=== PATIENT | female | born 1990 | race Caucasian/White ===

== ENCOUNTER 2019-02-26 11:00 | Inpatient (IN) | payer MEDICAID ==
[~2019-02-26] VITALS: Ht 165.1 cm; Wt 63.0 kg
[2019-02-26] VITALS (21 sets, daily range): BP systolic 93–121; BP diastolic 42–70; PULSE 64–106; RESP 13–21
[~2019-02-26 11:00] MED LIST: IBUP800T48 PO; OXYC500S PO
[2019-02-26] MEDS ORDERED: SOD CHLORIDE 0.9% 1,000 ML IV STA (16:05)
--- NOTE | 2019-02-26 16:27 | ERD ---
ER Documentation Chief Complaint Chief Complaint rt flank,back pain for 2 wks, 6 wk , denies vaginal bleeding HPI 28-year-old female presents with right lower abdominal pain for the last 2 weeks. She is approximately 6 weeks by dates. She is a G4. 2. History significant for bilateral tubal ligation 7 years ago. She denies any vaginal bleeding, fevers, vomiting. Pain is described as 6 out of 10 nonradiating and dull. Denies urinary complaints. Patient receives care by Dr. Uriarte at [facility]. ROS All systems reviewed and are negative except as per history of present illness. Medications Home Meds Reported Medications Ibuprofen* (Motrin*) 800 Mg Tab, 800 MG PO 03/12/13 Oxycodone Hcl-Acetaminophen* (Oxycodone Hcl-Acetaminophen* Soln) 500 Ml Solution, 500 ML PO 03/12/13 [None] No Conflict Check 04/25/12 Allergies Allergies: Coded Allergies: No Known Allergy (Verified , 01/19/12) PMhx/Soc History of Surgery: No Anesthesia Reaction: No Hx Neurological Disorder: No Hx Respiratory Disorders: No Hx Cardiac Disorders: No Hx Psychiatric Problems: No Hx Miscellaneous Medical Probl: Yes (UTI) Hx Alcohol Use: No Hx Substance Use: No Hx Tobacco Use: No Smoking Status: Never smoker FmHx Family History: No diabetes, No coronary disease, No other Physical Exam Vitals Vital Signs Date Temp Pulse Resp B/P (MAP) Pulse Ox O2 O2 Flow FiO2 Time Delivery Rate 02/26/19 98.8 76 15 123/83 99 11:15 (96) Physical Exam Const: No acute distress Head: Atraumatic Eyes: Normal Conjunctiva ENT: Normal External Ears, Nose and Mouth. Neck: Full range of motion. No meningismus. Resp: Clear to auscultation bilaterally Cardio: Regular rate and rhythm, no murmurs Abd: Soft, mild tenderness in the right lower abdomen without masses or rebound. Non distended. Normal bowel sounds Skin: No petechiae or rashes Back: No midline or flank tenderness Ext: No cyanosis, or edema Neur: Awake and alert Psych: Normal Mood and Affect Result Diagram: 02/26/19 1452 Results 24 hrs Laboratory Tests Test 02/26/19 14:52 White Blood Count 6.0 10^3/ul Red Blood Count 4.48 10^6/ul Hemoglobin 13.3 g/dl Hematocrit 40.6 % Mean Corpuscular Volume 90.6 fl Mean Corpuscular Hemoglobin 29.7 pg Mean Corpuscular Hemoglobin Concent 32.8 g/dl Red Cell Distribution Width 13.2 % Platelet Count 267 10^3/UL Mean Platelet Volume 8.8 fl Immature Granulocytes % 0.200 % Neutrophils % 58.5 % Lymphocytes % 30.8 % Monocytes % 7.5 % Eosinophils % 2.5 % Basophils % 0.5 % Nucleated Red Blood Cells % 0.0 /100WBC Immature Granulocytes # 0.010 10^3/ul Neutrophils # 3.5 10^3/ul Lymphocytes # 1.8 10^3/ul Monocytes # 0.5 10^3/ul Eosinophils # 0.2 10^3/ul Basophils # 0.0 10^3/ul Nucleated Red Blood Cells # 0.0 10^3/ul Urine Color YELLOW Urine Clarity CLOUDY Urine pH 7.0 Urine Specific [place] 1.011 Urine Ketones NEGATIVE mg/dL Urine Nitrite NEGATIVE mg/dL Urine Bilirubin NEGATIVE mg/dL Urine Urobilinogen NEGATIVE mg/dL Urine Leukocyte Esterase 1+ Nat/ul Urine Microscopic RBC 1 /HPF Urine Microscopic WBC 7 /HPF Urine Squamous Epithelial Cells FEW /HPF Urine Bacteria FEW /HPF Urine Hemoglobin NEGATIVE mg/dL Urine Glucose NEGATIVE mg/dL Urine Total Protein NEGATIVE mg/dl Beta HCG, Quantitative > 43035.0 mIU/ml Current Medications Medications Dose Sig/Shay Start Time Status Last (Trade) Ordered Route PRN Stop Time Admin Dose Reason Admin Sodium 1,000 ml @ Q1H STAT 02/26/19 02/26/19 Chloride 1,000 mls/hr IV 16:05 02/26/19 16:17 17:04 Procedures/MDM Quantitative hCG is greater than 150,000. Patient is Rh+. Quantitative hCG is greater than 150,000. CBC normal PROCEDURE: OB Ultrasound. CLINICAL INDICATION: Positive test. Right pelvic pain. Vaginal bleeding. TECHNIQUE: Ultrasound of the pelvis was performed with transabdominal and transvaginal sonography in the axial and sagittal planes. COMPARISON: No prior study is available for comparison. FINDINGS: There is no intrauterine gestational sac. Endometrial thickness is 9 mm. There is a live right adnexal ectopic gestation with yolk sac and pole present. [place]-rump length is 0.71 cm. Mean sac diameter is 1.05 cm. Menstrual age by ultrasound dates is 6 weeks 1 day. The right ovary appears normal measuring 3.2 x 1.8 x 1.5 cm. The left ovary appears normal measuring 2.5 x 1.1 x 1.4 cm. Color Doppler and pulsed Doppler sonography demonstrate normal flow to the ovaries. There is no other pelvic mass or free fluid. IMPRESSION: 1. Single live right adnexal ectopic gestation. 2. Empty uterus. 3. Otherwise unremarkable study. Call report: A call report of the findings was made to Dr. Gan on 02/26/2019 at 1600 hours. RPTAT: QQ .Joey Rodriguez MD, MD Date Time Electronically viewed and signed by .Joey Rodriguez MD, MD on 02/26/2019 16:11 .R/ CC: JOEY GAN MD Case was discussed with Dr. Uriarte. He requested the labors on-call consult on the patient. Case was discussed with Dr. Olivera who graciously agreed to cons ult on the patient for admission and further evaluation and treatment. Type and screen and BN P pending at time of dictation. Patient had stable vitals without bleeding is well-appearing prior to dictation Departure Diagnosis: Primary Impression: Ectopic Location of ectopic : other location Intrauterine status: without intrauterine Qualified Codes: O00.80 - Other ectopic without intrauterine Condition: Serious JOEY GAN MD Feb 26, 2019 16:27
--- NOTE | 2019-02-26 18:06 | CONS ---
Assessment/Plan Assessment/Plan Hospital Course (Demo Recall) Right lower abdominal pain Status post BTL Right tubal ectopic , with evidence of pole and cardiac activity Gestational sac size 1.1 cm to 1.2 cm, with cardiac activity seen in ultrasound Currently vitals are stable I discussed with the patient about the options of medical versus surgical management As the patient asked about her options. Not a good candidate for medical management due to highly elevated hCG more than 10,000 as well as presents of cardiac activity and ectopic gestation patient also does not consider any future fertility and at risk of recurrent ectopic even after successful medical management Discussed if she opted to proceed with medical management needs to have hospitalization with close monitoring of hCG and likely she may require to have multiple doses of methotrexate which carries its own risks of complications and side effects. Recommended surgery. Does not consider future fertility recommended to have bilateral salpingectomy with removal of ectopic gestation. All questions were answered using dining room cashier tear and she was counseled. After all discussion she opted to proceed with surgical management Risk and benefit of surgery including risk of infection, bleeding, damage to surrounding structures including bowel and bladder and risk of conversion to open procedure and risk of blood transfusion and its complications including risk of blood-borne infection including hepatitis B and C and transfusion reaction and HIV discussed with the patient in detail. Patient verbalized understanding all risks and desires to proceed. She understands risk of conversion to open procedure as well All questions were answered to patient's best satisfaction We will keep the patient n.p.o. CBC type and screen We will book the patient for lap scopic bilateral salpingectomy Admit the patient to regular MedSurg unit Consultation Date/Type/Reason Admit Date/Time Date of Consultation: Feb 26, 2019 Reason for Consultation Concern for Ectopic Date/Time of Note DATE: 02/26/19 TIME: 17:57 Hx of Present Illness 28-year-old a pleasant female presented to emergency room after she was referred from the clinic due to concern for ectopic . Patient status post bilateral tubal sterilization in the past. Noted to have a positive test. Reported lower abdominal pain for the past few days. Was seen in clinic today and had a positive test. Patient was referred to emergency room. Reports her LMP December 2018. Cycles have been regular every month and last about 4 days with normal flow. , status post x1 and C- section x1. Subsequently she had bilateral tubal sterilization per patient was vaginally done. Patient does not desire any future fertility. Currently denies any shortness of breath, chest pain dizziness or lightheadedness. Her hCG level is 14,000 and there is 1.1 cm right adnexal gestational sac with a yolk sac and pole and cardiac activity consistent with 6 weeks and 2 days noted with no evidence of free fluid and no IUP. Subjective hx not possible: other (Stable) Constitutional: no complaints; No improved, No chills, No diaphoresis, No disoriented, No febrile, No poor po, No requiring IVF, No requiring O2, No other Eyes: No no complaints, No pain, No discharge, No redness, No visual change, No other ENT: No no complaints, No bleeding, No pain, No congestion, No discharge, No dysphagia, No sore throat, No other Respiratory: No no complaints, No pain, No cough, No pleuritic pain, No shortness of breath, No sputum, No wheezing, No other Cardiovascular: No no complaints, No chest pain, No edema, No lightheadedness, No orthopenea, No palpitations, No paroxysmal nocturnal dyspnea, No other Gastrointestinal: pain, blood, other (Right lower abdominal pain); No no complaints, No constipation, No decreased appetite, No diarrhea, No flatus, No nausea, No passing stool, No vomiting Genitourinary: other (Right lower adnexal pain or abdominal pain); No no complaints, No bleeding, No dysuria, No discharge, No flank pain, No hematuria Musculoskeletal: No no complaints, No back pain, No bone/joint pain, No neck pain, No restricted range of motion, No swelling, No other Skin: No no complaints, No bruising, No erythema, No laceration, No pruritis, No rash, No skin lesions, No other Neurologic: No no complaints, No confusion, No dizziness, No focal-weakness, No headache, No syncope, No seizure, No other Endocrine: No no complaints, No polyuria, No polydypsia, No dry skin, No temp intolerance, No other Lymphatic: No no complaints, No adenopathy, No tender nodes, No lymphadema, No other Psychological: No no complaints, No nl mood/affect, No anxiety, No confusion, No depression, No suicidal, No other Immunologic: No no complaints, No immunodeficiency, No pruritis, No rhinitis, No urticaria, No other Past Medical History Past medical history: Denies any medical problem in the past Past surgical history: Status post x1 Status post hysteroscopic bilateral tubal sterilization 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 post x1 Status post x1 Status post BTL LMP: January 14, 2019 Cycles regular every month last about 4 days with normal flow Last Pap smear: February 26, 2019 today in the office Home Meds Reported Medications Ibuprofen* (Motrin*) 800 Mg Tab, 800 MG PO 03/12/13 Oxycodone Hcl-Acetaminophen* (Oxycodone Hcl-Acetaminophen* Soln) 500 Ml Solution, 500 ML PO 03/12/13 [None] No Conflict Check 04/25/12 Allergies: Coded Allergies: No Known Allergy (Verified , 01/19/12) Past Surgical History Past Surgical Hx: other (Status post x1, status post BTL) Social History Alcohol Use: none Smoking Status: Never smoker Drug Use: none Exam/Review of Systems Exam Vitals Vital Signs Date Temp Pulse Resp B/P (MAP) Pulse Ox O2 O2 Flow FiO2 Time Delivery Rate 02/26/19 98.8 76 15 123/83 99 11:15 (96) Constitutional: alert, oriented, well developed Psych: no complaints, nl mood/affect, anxiety Head: normocephalic, atraumatic Eyes: nl conjunctiva, EOMI, nl lids ENMT: nl external ears & nose, nl lips & teeth Neck: supple, non-tender Respiratory: clear to auscultation, normal air movement Cardiovascular: regular rate and rhythm, nl pulses Gastrointestinal: soft, tender, other (Mild to moderate tenderness in the lower abdomen and the right side noted. No rebound tenderness, no rigidity, no gu arding, no evidence of acute abdomen,) Genitourinary - Female: other (External genitalia within normal limits. Sterile speculum exam. Cervix appears normal with no abnormal vaginal discharge. Vagina without any lesion. No blood in the vault. Uterus normal size. There is tenderness in the right adnexa noted. No tenderness in the left adnexa. No uterine tenderness noted) Neurological: PACKING LINE OPERATOR II-XII intact, nl mental status Skin: nl turgor Lymph: nl lymph nodes Results Result Diagram: 02/26/19 1452 02/26/19 1616 Results 24hrs Laboratory Tests Test 02/26/19 14:52 02/26/19 16:16 White Blood Count 6.0 Red Blood Count 4.48 Hemoglobin 13.3 Hematocrit 40.6 Mean Corpuscular Volume 90.6 Mean Corpuscular Hemoglobin 29.7 Mean Corpuscular Hemoglobin Concent 32.8 Red Cell Distribution Width 13.2 Platelet Count 267 Mean Platelet Volume 8.8 Immature Granulocytes % 0.200 Neutrophils % 58.5 Lymphocytes % 30.8 Monocytes % 7.5 Eosinophils % 2.5 Basophils % 0.5 Nucleated Red Blood Cells % 0.0 Immature Granulocytes # 0.010 Neutrophils # 3.5 Lymphocytes # 1.8 Monocytes # 0.5 Eosinophils # 0.2 Basophils # 0.0 Nucleated Red Blood Cells # 0.0 Urine Color YELLOW Urine Clarity CLOUDY A Urine pH 7.0 Urine Specific [place] 1.011 Urine Ketones NEGATIVE Urine Nitrite NEGATIVE Urine Bilirubin NEGATIVE Urine Urobilinogen NEGATIVE Urine Leukocyte Esterase 1+ H Urine Microscopic RBC 1 Urine Microscopic WBC 7 H Urine Squamous Epithelial Cells FEW Urine Bacteria FEW A Urine Hemoglobin NEGATIVE Urine Glucose NEGATIVE Urine Total Protein NEGATIVE Beta HCG, Quantitative 65436.0 Sodium Level 139 Potassium Level 4.0 Chloride Level 103 Carbon Dioxide Level 25 Anion Gap 11 Blood Urea Nitrogen 9 Creatinine 0.51 Est Glomerular Filtrat Rate mL/min > 60 Glucose Level 93 Calcium Level 9.5 Imaging Imaging PROCEDURE: OB Ultrasound. CLINICAL INDICATION: Positive test. Right pelvic pain. Vaginal bleeding. TECHNIQUE: Ultrasound of the pelvis was performed with transabdominal and transvaginal sonography in the axial and sagittal planes. COMPARISON: No prior study is available for comparison. FINDINGS: There is no intrauterine gestational sac. Endometrial thickness is 9 mm. There is a live right adnexal ectopic gestation with yolk sac and pole present. [place]-rump length is 0.71 cm. Mean sac diameter is 1.05 cm. Menstrual age by ultrasound dates is 6 weeks 1 day. The right ovary appears normal measuring 3.2 x 1.8 x 1.5 cm. The left ovary appears normal measuring 2.5 x 1.1 x 1.4 cm. Color Doppler and pulsed Doppler sonography demonstrate normal flow to the ovaries. There is no other pelvic mass or free fluid. IMPRESSION: 1. Single live right adnexal ectopic gestation. 2. Empty uterus. 3. Otherwise unremarkable study. Call report: A call report of the findings was made to Dr. Gan on 02/26/2019 at 1600 hours. MARY JANE JENKINS MD Feb 26, 2019 18:06
[2019-02-26] MEDS ORDERED: morphine 2 MG INJ IV PRN (18:30)
[2019-02-26] MEDS: DEXTROSE 5%-LR 1,000 ML IV SCH (19:07)
--- NOTE | 2019-02-26 19:29 | QN ---
Documentation Comment Dr. Gan initially saw this patient and Dr. Marin from OB came to the bedside and has seen the patient and written note. I just spoke with Dr. Berry who will see the patient as well as her Arnancylan is in the operating room at this time. I would admit the patient to Dr. Marin with Dr. Berry as possible comanagement. The patient has a single live ectopic without rupture at this time. THUY BURKETT MD Feb 26, 2019 19:29
[2019-02-26] MEDS ORDERED: ONDANSETRON 4 MG INJ IV PRN ×3 (19:30→20:30)
[2019-02-26] MEDS ORDERED: ACETAMINOPHEN 325 MG TAB PO PRN (19:30)
--- NOTE | 2019-02-26 20:05 | PREAC ---
Date/Time of Note Date/Time of Note DATE: 02/26/19 TIME: 20:04 Anesthesia Eval and Record Evaluation Time Pre-Procedure Interview DATE: 02/26/19 TIME: 20:04 Age 28 Sex female NPO: 8 hrs Preoperative diagnosis ECTOPIC TUBAL Planned procedure MINI LAPAROTOMY, SALPINGECTOMY Past Medical History Past Medical History: Includes (PTREGNANT 6 WEEKS) : Gestational age: (6 WEEKS) Surgery & Anesthesia Issues No known issue Meds Anticoagulation: No Beta Ludy within 24 hr: No Reason Beta Ludy not given: Pt. not on B-Ludy Reported Medications Ibuprofen* (Motrin*) 800 Mg Tab, 800 MG PO 03/12/13 Oxycodone Hcl-Acetaminophen* (Oxycodone Hcl-Acetaminophen* Soln) 500 Ml Solution, 500 ML PO 03/12/13 [None] No Conflict Check 04/25/12 Current Medications Dextrose/Lactated Ringer's 1,000 ml @ 125 mls/hr Q8H IV Last administered on 02/26/19at 19:07; Admin Dose 125 MLS/HR; Start 02/26/19 at 18:30 Morphine Sulfate (morphine) 1 mg Q3 PRN IV Pain; Start 02/26/19 at 18:30 Ondansetron HCl (Zofran Inj) 4 mg QID PRN IV Nausea; Start 02/26/19 at 18:30 Ondansetron HCl (Zofran Inj) 4 mg BRIDGE ORDER PRN IV NAUSEA/VOMITING; Start 02/26/19 at 19:30; Stop 02/27/19 at 19:29 Acetaminophen (Tylenol Tab) 650 mg ER BRIDGE PRN PO .MILD PAIN 1-3 OR TEMP; Start 02/26/19 at 19:30; Stop 02/27/19 at 19:29 Meds reviewed: Yes Allergies Coded Allergies: No Known Allergy (Verified , 01/19/12) Allergies Reviewed: Yes Labs/Studies Labs Reviewed: Reviewed by anesthesiologist Result Diagram: 02/26/19 1452 02/26/19 1616 Laboratory Tests 02/26/19 14:52 02/26/19 16:16 Blood Bank Test 02/26/19 16:16 Antibody Screen NEGATIVE Blood Type O POSITIVE test: N/A Pre-procedure Exam Last vitals Vital Signs Date Temp Pulse Resp B/P (MAP) Pulse Ox O2 O2 Flow FiO2 Time Delivery Rate 02/26/19 98.8 76 15 123/83 99 11:15 (96) Airway: Adequate mouth opening, Adequate thyromental dist Mallampati: Mallampati II Teeth: Normal Lung: Normal Heart: Normal ASA Physical Status ASA physical status: 2 Emergency: E Planned Anesthetic General/MAC: ETT Planned Pain Management Sub-arachniod narcotics, Parenteral pain med Pre-operative Attestations Prior to commencing anesthesia and surgery, the patient was re-evaluated, there was verification of: *The patient's identity *The results of appropriate recent lab work and preoperative vital signs *The above evaluation not changing prior to induction *Anesthetic plan, risk benefits, alternative and complications discussed with patient/family; questions answered; patient/family understands, accepts and wishes to proceed. Tripp Crawford M.D. Feb 26, 2019 20:05
[2019-02-26] MEDS ORDERED: CEFAZOLIN 1 GM INJ ONE (20:08)
[2019-02-26] MEDS ORDERED: GLYCOPYRROLATE 0.4 MG INJ ONE (20:08)
[2019-02-26] MEDS ORDERED: FENTAnyl 50 MCG/ML VIAL ONE (20:08)
[2019-02-26] MEDS ORDERED: MIDAZOLAM 1 MG/ML 2 ML INJ ONE (20:08)
[2019-02-26] MEDS ORDERED: NEOSTIGMINE 3 MG/3 ML SYRINGE ONE (20:08)
[2019-02-26] MEDS ORDERED: ONDANSETRON 4 MG INJ ONE (20:08)
[2019-02-26] MEDS ORDERED: ROCURONIUM 50 MG INJ ONE (20:08)
[2019-02-26] MEDS ORDERED: PROPOFOL 20 ML ONE (20:08)
[2019-02-26] MEDS ORDERED: DEXAMETHASONE 4 MG/ML 5 ML INJ ONE (20:09)
[2019-02-26] MEDS ORDERED: morphine SULFATE/PF (10 MG/10 ML) INJ ONE (20:26)
[2019-02-26] MEDS ORDERED: HYDROmorphONE 0.5 MG/0.5 ML SYG IV PRN ×2 (20:30)
[2019-02-26] MEDS ORDERED: NALBUPHINE HCL (10 MG/1 ML) INJ IV PRN (20:30)
[2019-02-26] MEDS ORDERED: LABETALOL HCL 20MG INJ IV PRN (20:30)
[2019-02-26] MEDS ORDERED: FENTAnyl 50 MCG/ML VIAL IV PRN ×3 (20:30)
[2019-02-26] MEDS ORDERED: IPRATROPIUM (NEB) 0.5 MG/2.5 ML AMP HHN PRN (20:30)
[2019-02-26] MEDS ORDERED: MIDAZOLAM 1 MG/ML 2 ML INJ IV PRN (20:30)
[2019-02-26] MEDS ORDERED: hydrALAzine 20 MG INJ IV PRN (20:30)
[2019-02-26] MEDS ORDERED: ZOLPIDEM 5 MG TAB PO PRN (20:30)
[2019-02-26] MEDS ORDERED: EPHEDrine SULFATE 50 MG/5 ML SYG IV PRN (20:30)
[2019-02-26] MEDS ORDERED: OXYCODONE/ACETAMINOPHEN (5/325) TAB PO PRN ×2 (20:30)
[2019-02-26] MEDS ORDERED: MEPERIDINE 25 MG INJ IV PRN (20:30)
[2019-02-26] MEDS ORDERED: ALBUTEROL 0.083% (NEB) 2.5 MG/3 ML AMP HHN PRN (20:30)
[2019-02-26] MEDS ORDERED: HYDROmorphONE 1 MG/5 ML IV SYRINGE IV PRN ×3 (20:30)
[2019-02-26] MEDS ORDERED: TRIMETHOBENZAMIDE 100 MG/ML VIAL IM PRN ×2 (20:30)
[2019-02-26] MEDS ORDERED: NALOXONE (0.4 MG/ML) INJ IV PRN (20:30)
[2019-02-26] MEDS ORDERED: DIPHENHYDRAMINE 50 MG INJ IV PRN ×2 (20:30)
--- NOTE | 2019-02-26 21:44 | PAC ---
Date/Time of Note Date/Time of Note DATE: 02/26/19 TIME: 21:44 Post-Anesthesia Notes Post-Anesthesia Note Last documented vital signs Vital Signs Date Temp Pulse Resp B/P (MAP) Pulse Ox O2 O2 Flow FiO2 Time Delivery Rate 02/26/19 98.8 76 15 123/83 99 11:15 (96) Activity: WNL Respiratory function: WNL Cardiovascular function: WNL Mental status: Baseline Pain reasonably controlled: Yes Hydration appropriate: Yes Nausea/Vomiting absent: Yes Tripp Crawford M.D. Feb 26, 2019 21:44
--- NOTE | 2019-02-26 22:05 | SIPON ---
Date/Time of Note Date/Time of Note DATE: 02/26/19 TIME: 21:59 Operative Report Preoperative Diagnosis right tubal Postoperative Diagnosis same as above right isthmic unruptured no finding of previous tubal sterilization Operation/Procedure Performed mini lap bilateral salphingectomy Surgeon see signature line certified pathology assistant griffin [place] Anesthesia: general Estimated blood loss: 0 - 10 ml's Transfusion Required none Specimen right follopian tube with isthmic left fimbria Grafts/Implants none Complications none CLEMENTE PITTS MD Feb 26, 2019 22:05
--- NOTE | 2019-02-26 23:44 | OPR ---
DATE OF OPERATION: 02/26/2019 PREOPERATIVE DIAGNOSES: Right ectopic , right tubal . POSTOPERATIVE DIAGNOSIS: Right isthmic tubal , unruptured, and no finding of a tubal steril ization, which the patient stated that she had a tubal sterilization, but no finding of a tubal steri lization on both tubes. OPERATION PERFORMED: Mini laparotomy, right salpingectomy, left fimbriectomy. ANESTHESIA: General. ANESTHESIOLOGIST: Dr. Crawford. SURGEON: Alaina Berry M.D. AUDIT SPEC: Ch[employer] Think. ESTIMATED BLOOD LOSS: Minimal, negligible. PROCEDURE: Under proper induction of general anesthesia, the patient was placed in the frog position . Alexander catheter was introduced and repositioned to supine. Abdominal wall was prepped and draped i n usual aseptic manner. A transverse incision was made along the previous incisional scar in the mid dle portion. The excision of scar was done in the mid portion approximately 8 cm and the incision wa s carried down through the subcutaneous tissue to the anterior recti fascia which was incised transve rsely in length of the ____. Fascial flap was created by blunt and sharp dissection of tendinous att achment to cephalad and caudad. Peritoneal cavity was entered. Marcus small size was introduced int o the peritoneal cavity and the uterus and fallopian tube and ovary were visualized. Right fallopian tube was identified, which was brought out to the surgical field which has dilatation of the fallopi an tube with a bluish discoloration starting near the cornual approximately 4 cm in length. So, incl uding this area entire fallopian tube was clamped with Pean and the tube was excised, and the pedicle was transfixed with #1 chromic catgut in 2 segments. The piece of Interceed was placed on the surgi david site. Left fallopian tube also identified which is normal finding of a tubal sterilization evide nce and fimbria was grasped with a Pean and this was excised, and the pedicle was closed with 0 chrom ic catgut. This was doubly ligated. A piece of Interceed was placed on the surgical site. No bleed er was noted. Parietal peritoneum closed using 0 chromic catgut. Muscle closed with 0 chromic catgu t. Fascia closed with #1 Vicryl in continuous manner. Subcutaneous tissue irrigated with water. Th is layer was approximated with 2-0 plain in continuous manner. Skin closed with a 3-0 Monocryl in crawford bcuticular manner. Steri-Strip applied. A pressure dressing applied. Estimated blood loss was mini mal, less than to 10 mL. The patient withstood the procedure and was sent to the recovery room in st able condition. Dictated By: ALAINA BRANTLEY/ISA Conf#: [id number] DID#: [id number] CC: MARY JANE JENKINS MD;*EndCC*
[2019-02-27] VITALS (9 sets, daily range): BP systolic 99–108; BP diastolic 51–59; PULSE 65–99; RESP 18–20; Ht 165.1 cm; Wt 63.0 kg
[2019-02-27] MEDS: ONDANSETRON 4 MG INJ IV PRN ×3 (03:31→13:10)
[2019-02-27] MEDS: KETOROLAC 30 MG INJ IV PRN ×2 (03:32→18:22)
[2019-02-27] MEDS: DEXTROSE 5%-LR 1,000 ML IV SCH ×4 (03:32→20:28)
--- NOTE | 2019-02-27 17:01 | QN ---
Documentation Comment c/o nausea hasnt eaten food this am passing flatus abdomen soft wound dry calf neg for tenderness A S/P mini lap BS #1 P as ordered CLEMENTE PITTS MD Feb 27, 2019 17:01
[2019-02-27] MEDS: IBUPROFEN 600 MG TAB GTB SCH (21:20)
[2019-02-28] MEDS: IBUPROFEN 600 MG TAB GTB SCH ×3 (01:15→12:33)
[2019-02-28 02:47] VITALS: BP 105/63; PULSE 62; RESP 20
[2019-02-28] MEDS: DEXTROSE 5%-LR 1,000 ML IV SCH (06:23)
[2019-02-28 07:36] VITALS: BP 110/55; PULSE 78; RESP 18
[2019-02-28 14:00] VITALS: BP 108/58; PULSE 68; RESP 18
--- NOTE | 2019-02-28 15:45 | PD.PPDC ---
CASINO SUPERVISOR Discharge Instruction Condition Gyoey2Ms Patient Condition: Yhkhz1v Good Diet [id number] Diet: Uuykj2r Resume Regular Diet Activity/Restrictions [id number] Activity: Ivuja4y Bedrest May be up to bathroom May be up for meals May Shower [id number] Restrictions: Srofi8t No Exercising No Lifting No Driving Minimize Walking Minimize Stair-climbing No Sexual Activity Nothing in the Vagina Wound/Drain Care Instructions [id number] Wound/Drain Care Ylniw8y Remove Steri Strips in 2 Instructions: weeks Keep clean and dry Follow-up Follow-up with Physician: 2, Week/Weeks Return to clinic for [id number] INSULATION WORKER Instructions: Pwqht5j Fever greater than 101 Chills Worsening abdominal pain Excessive Vaginal Bleeding [id number] OB Instructions: Atloh5e Breast Tenderness Depression Cumjj3Bv Surgical Instructions: Ahqoh0s Incisional Drainage Incisional Redness ARSENIO MCCLELLAN MD Feb 28, 2019 15:45
[2019-02-28] MEDS ORDERED: OXYC-279 PO (15:47)
--- NOTE | 2019-02-28 15:59 | DS ---
Date/Time of Note Date/Time of Note DATE: 02/28/19 TIME: 15:50 Discharge Summary Admission/Discharge Info Admit Date/Time Feb 26, 2019 at 19:53 Discharge Date/Time February 28, 2019 Discharge Diagnosis Large right ectopic . H/o prior sterilization procedure. Patient Condition: Good Procedures Exploratory laparotomy. Right salpingectomy. Left fimbriectomy. Hospital Course Pt had a large unruptured right tubal and was not a candidate for medical management. She had a exploratory laparotomy 02/[address] Berry. The pt reports to me that she had Essure implants placed before and had hoped that they would be removed during this procedure as she has been having pain at her periods due to them but, apparently, the consulting doctor nor the operating doctor understood this so during the surgery no evidence of a prior tubal ligation was noted and the tube with the ectopic was removed in total but it was not noted it the Essure was present in the portion removed although the was proximal to the cornual region. The pathology reports is not yet available.The other side had a fimbriectomy only. Pt is doing well with good pain control, passing flatus and tolerating a regular diet and wishes to go home. Her 2 kids at home are ages 7 and 9. Home Meds Reported Medications Ibuprofen* (Motrin*) 800 Mg Tab, 800 MG PO 03/12/13 Oxycodone Hcl-Acetaminophen* (Oxycodone Hcl-Acetaminophen* Soln) 500 Ml Solution, 500 ML PO 03/12/13 [None] No Conflict Check 04/25/12 Follow-up Plan 2 weeks. Primary Care Provider Amos Uriarte MD Time spent on discharge: < 30 minutes ARSENIO MCCLELLAN MD Feb 28, 2019 15:59
== END 2019-02-28 16:45 | disposition home or self-care (01) | DRG 819 ==
LOC: FTE 11:00 → REC 19:53 → MS1 23:50
PROVIDERS: ADMIT Obstetrics & Gynecology Obstetrics; ATTEND Obstetrics & Gynecology Obstetrics
PROC: 10T20ZZ Resection of Products of Conception, Ectopic, Open Approach (ICD-10-PCS; 2019-02-26)
PROC: 0UB70ZZ Excision of Bilateral Fallopian Tubes, Open Approach (ICD-10-PCS; principal; 2019-02-26 20:30)
DX: O00.101 Right tubal pregnancy without intrauterine pregnancy (principal); Z98.51 Tubal ligation status
CPT/HCPCS: 36415; 76801; 76817; 80048; 81001; 84702; 85025; 86850; 86900; 86901; 88302; 96360; 96361; J0690; J1100; J1170; J1885; J2250; J2270; J2274; J2405; J2710; J3010; J3250; J7030; J7121